=== PATIENT | female | born 1960 | race Hispanic/Latino ===

== ENCOUNTER → 2024-05-22 | Day surgery (SDC) | payer BC ==
[2024-05-21 09:34] LABS: BASOPHILS # (AUTO) 0.1 (0.0-0.1); BASOPHILS % 0.6 % (0.0-1.0); EOSINOPHILS # (AUTO) 0.2 (0.0-0.4); EOSINOPHILS % 2.2 % (0.0-6.0); HEMATOCRIT 45.1 % (34.2-44.1); LYMPHOCYTES % 25.2 % (18.0-39.1); MEAN CORPUSCULAR HEMOGLOBIN 29.5 pg (28-32); MEAN CORPUSCULAR VOLUME 95.1 fL (81-99); MONOCYTES # (AUTO) 0.4 (0.2-0.8); MONOCYTES % 5.6 % (4.4-11.3); NEUTROPHILS # (AUTO) 5.1 (2.1-6.9); PLATELET COUNT 300 x10e3/uL (140-360); RED BLOOD COUNT 4.74 x10e6/uL (3.6-5.1); WHITE BLOOD COUNT 7.79 x10e3/uL (4.8-10.8)
[2024-05-21 09:52] LABS: ALBUMIN 3.6 g/dL (3.5-5.0); ALBUMIN/GLOBULIN RATIO 0.8 (0.8-2.0); ANION GAP 16.3 mmol/L (8-16); BILIRUBIN,TOTAL 0.7 mg/dL (0.2-1.2); CALCIUM 9.4 mg/dL (8.4-10.2); CREATININE, SERUM 0.7 mg/dL (0.57-1.11); POTASSIUM 4.3 mmol/L (3.5-5.1); TOTAL PROTEIN 8.1 g/dL (6.5-8.1)
[~2024-05-22] MED LIST: AZO URINARY TR1 EACH; AZO1 EACH; BACTRIM DS TAB1 EACH PO; BENICAR20 MG PO; CEPHALEXIN500 MG PO; DEXAMETHASONE SOD PHOS INJ 4 MG/ML SDV ONE; FENTANYL CITRATE/PF 100MCG/2 ML INJ ONE; IOPAMIDOL 610MG/1ML 300 MG/ML VIAL IV ONE; LIDOCAINE HCL 2% LOCAL INJ 5 ML SDV VIAL INJ ONE; ONDANSETRON HCL INJ 2MG/ML 2ML 2 MG/ML VIAL ONE; ONDANSETRON ODT4 MG PO; PHENAZOPYRIDINE HCL 100 MG TAB ONE; PROPOFOL IV EMULSION 10 MG/ML 20 ML VIAL ONE; SEVOFLURANE INHAL SOLN 250 ML PEN BTL ONE; VITAMIN C500 M1 PO
[2024-05-22] MEDS: CEFTRIAXONE 1 GM VIAL ONE (10:10)
[2024-05-22] MEDS: LACTATED RINGER'S 1,000 ML ONE (10:10)
[2024-05-22 10:16] LABS: CALCIUM 9.4 mg/dL (8.7-10.3)
[2024-05-22 13:25] VITALS: BP 148/72; PULSE 80; RESP 17; O2SAT 99
== END | disposition home or self-care (01) ==
LOC: OR 09:18
PROVIDERS: ATTEND Urology
DX: N13.6 Pyonephrosis (principal); R31.0 Gross hematuria; N81.10 Cystocele, unspecified; N81.6 Rectocele; N36.41 Hypermobility of urethra; N95.2 Postmenopausal atrophic vaginitis; I10 Essential (primary) hypertension; K21.9 Gastro-esophageal reflux disease without esophagitis; R94.31 Abnormal electrocardiogram [ECG] [EKG]; Z01.810 Encounter for preprocedural cardiovascular examination; Z01.812 Encounter for preprocedural laboratory examination; Z01.818 Encounter for other preprocedural examination; Z79.899 Other long term (current) drug therapy
CPT/HCPCS: 36415; 52332; 74018; 74420; 80053; 83970; 84550; 85025; 87086; 93005; C1758; C1766; C1769; C2617; J0696; J1100; J2003; J2405; J2704; J3010; J7121; Q9967

== ENCOUNTER 2024-06-06 16:17 | Inpatient (IN) | payer BC, OTHER ==
[~2024-06-06] VITALS: Ht 157.5 cm; Wt 66.2 kg
[~2024-06-06 16:17] MED LIST changes: -AZO URINARY TR1 EACH; -AZO1 EACH; -BACTRIM DS TAB1 EACH PO; -CEPHALEXIN500 MG PO; -DEXAMETHASONE SOD PHOS INJ 4 MG/ML SDV ONE; -FENTANYL CITRATE/PF 100MCG/2 ML INJ ONE; -IOPAMIDOL 610MG/1ML 300 MG/ML VIAL IV ONE; -LIDOCAINE HCL 2% LOCAL INJ 5 ML SDV VIAL INJ ONE; -ONDANSETRON HCL INJ 2MG/ML 2ML 2 MG/ML VIAL ONE; -ONDANSETRON ODT4 MG PO; -PHENAZOPYRIDINE HCL 100 MG TAB ONE; -PROPOFOL IV EMULSION 10 MG/ML 20 ML VIAL ONE; -SEVOFLURANE INHAL SOLN 250 ML PEN BTL ONE; -VITAMIN C500 M1 PO
[2024-06-06 16:23] VITALS: TEMP 98.8
[2024-06-06 17:09] LABS: BASOPHILS # (AUTO) 0.1 (0.0-0.1); BASOPHILS % 0.4 % (0.0-1.0); EOSINOPHILS % 0.2 % (0.0-6.0); HEMATOCRIT 39.5 % (34.2-44.1); HEMOGLOBIN 12.6 g/dL (12.0-16.0); LYMPHOCYTES % 15.5 % (18.0-39.1); MEAN CORPUSCULAR HEMOGLOBIN 29.4 pg (28-32); MEAN CORPUSCULAR HGB CONC 31.9 g/dL (31-35); MEAN CORPUSCULAR VOLUME 92.1 fL (81-99); MONOCYTES % 8.2 % (4.4-11.3); NEUTROPHILS # (AUTO) 9.5 (2.1-6.9); NEUTROPHILS % 75.5 % (38.7-80.0); PLATELET COUNT 248 x10e3/uL (140-360); RED BLOOD COUNT 4.29 x10e6/uL (3.6-5.1); RED CELL DISTRIBUTION WIDTH 13.9 % (11.7-14.4)
[2024-06-06 17:11] LABS: CLARITY,URINE HAZY (CLEAR); COLOR,URINE YELLOW (YELLOW); PH,URINE 6 (5 - 7)
[2024-06-06 17:12] LABS: GLUCOSE, URINE NEGATIVE (NEGATIVE); KETONES,URINE TRACE (NEGATIVE); LEUKOCYTE ESTERASE ,URINE SMALL (NEGATIVE); NITRITE,URINE POSITIVE (NEGATIVE); PROTEIN,URINE DIPSTICK 2+ (NEGATIVE)
[2024-06-06 17:13] LABS: BACTERIA,URINE MODERATE /HPF; BILIRUBIN,URINE SMALL (NEGATIVE); EPITHELIAL CELLS,URINE FEW /LPF; URINE UROBILINOGEN 0.2 mg/dL (0.2 - 1); WBC,URINE (MAN) >50 /HPF (0-5)
[2024-06-06 17:14] LABS: AMORPHOUS SEDIMENT,URINE FEW (FEW); MUCUS,URINE FEW (RARE)
[2024-06-06 17:28] LABS: ALBUMIN 3.6 g/dL (3.5-5.0); ALBUMIN/GLOBULIN RATIO 0.9 (0.8-2.0); ANION GAP 15.4 mmol/L (8-16); BILIRUBIN,TOTAL 1.2 mg/dL (0.2-1.2); CALCIUM 9.5 mg/dL (8.4-10.2); CREATININE, SERUM 0.9 mg/dL (0.57-1.11); POTASSIUM 4.4 mmol/L (3.5-5.1); TOTAL PROTEIN 7.8 g/dL (6.5-8.1)
[2024-06-06] MEDS: SODIUM CHLORIDE 0.9% 1000ML 1,000 ML IV ONE (17:28)
[2024-06-06] MEDS: ONDANSETRON HCL INJ 2MG/ML 2ML 2 MG/ML VIAL IV STA (17:28)
[2024-06-06] MEDS: KETOROLAC TROMETHAMINE 30 MG/ML VIAL IV STA (17:29)
[2024-06-06] MEDS ORDERED: Morphine 2mg Syringe 2 MG/ML SYR IV PRN (18:00)
[2024-06-06] MEDS ORDERED: ONDANSETRON HCL INJ 2MG/ML 2ML 2 MG/ML VIAL IV PRN (18:00)
[2024-06-06] MEDS ORDERED: SODIUM CHLORIDE FLUSH 10 ML SYR INJ PRN (18:00)
[2024-06-06 18:46] VITALS: PULSE 91; RESP 16
[2024-06-06 20:00] VITALS: BP 116/70; PULSE 94; RESP 18; TEMP 98; O2SAT 99
[2024-06-06 20:30] VITALS: BP 127/72; PULSE 86; RESP 18; TEMP 98.6; O2SAT 99
[2024-06-07] VITALS: BP 146/77; PULSE 94; RESP 18; TEMP 98.7; O2SAT 97
[2024-06-07] MEDS ORDERED: AZO1 EACH (00:20)
[2024-06-07] MEDS ORDERED: AZO URINARY TR1 EACH (00:20)
[2024-06-07] MEDS ORDERED: CEPHALEXIN500 MG PO (00:20)
[2024-06-07 04:00] VITALS: BP 138/72; PULSE 89; RESP 18; TEMP 98.2; O2SAT 99
[2024-06-07 06:06] LABS: BASOPHILS % 0.2 % (0.0-1.0); EOSINOPHILS % 0.3 % (0.0-6.0); HEMATOCRIT 37.6 % (34.2-44.1); HEMOGLOBIN 11.9 g/dL (12.0-16.0); LYMPHOCYTES # (AUTO) 1.1 (1.0-3.2); LYMPHOCYTES % 12.4 % (18.0-39.1); MEAN CORPUSCULAR HEMOGLOBIN 29.3 pg (28-32); MEAN CORPUSCULAR HGB CONC 31.6 g/dL (31-35); MEAN CORPUSCULAR VOLUME 92.6 fL (81-99); MONOCYTES # (AUTO) 0.7 (0.2-0.8); MONOCYTES % 7.2 % (4.4-11.3); NEUTROPHILS # (AUTO) 7.2 (2.1-6.9); NEUTROPHILS % 79.7 % (38.7-80.0); PLATELET COUNT 197 x10e3/uL (140-360); RED BLOOD COUNT 4.06 x10e6/uL (3.6-5.1); RED CELL DISTRIBUTION WIDTH 13.8 % (11.7-14.4); WHITE BLOOD COUNT 8.98 x10e3/uL (4.8-10.8)
[2024-06-07 06:31] LABS: ALBUMIN 3.1 g/dL (3.5-5.0); ALBUMIN/GLOBULIN RATIO 0.8 (0.8-2.0); BILIRUBIN,TOTAL 0.8 mg/dL (0.2-1.2); CALCIUM 8.8 mg/dL (8.4-10.2); CREATININE, SERUM 0.75 mg/dL (0.57-1.11)
[2024-06-07] MEDS ORDERED: VANCOMYCIN 1.5 GM/300 ML (PEG) 300 ML IV SCH ×2 (07:30→11:00)
[2024-06-07 08:00] VITALS: BP 138/72; PULSE 89; RESP 18; TEMP 98.2; O2SAT 99
[2024-06-07 12:28] VITALS: BP 99/52; PULSE 101; RESP 17; TEMP 97.2; O2SAT 97
[2024-06-07 16:00] VITALS: BP 107/63; PULSE 87; RESP 18; TEMP 99.3; O2SAT 99
[2024-06-07 20:00] VITALS: BP 107/59; PULSE 86; RESP 18; TEMP 99.2; O2SAT 99
[2024-06-07] MEDS: CEFEPIME 2 GM in SODIUM CHLORIDE 0.9% 100 ML IV SCH (21:30)
[2024-06-07] MEDS: DIPHENHYDRAMINE HCL INJ 50 MG/ML VIAL IV ONE (22:12)
[2024-06-07] MEDS: METHYLPREDNISOLONE SOD SUCC 125 MG/2ML VIAL IV ONE (22:13)
[2024-06-08] VITALS (8 sets, daily range): BP systolic 93–119; BP diastolic 57–73; PULSE 74–86; RESP 17–19; TEMP 97.4–98.5; O2SAT 95–100
[2024-06-08] MEDS ORDERED: DIPHENHYDRAMINE HCL INJ 50 MG/ML VIAL IV PRN (04:00)
[2024-06-08] MEDS: MEROPENEM 1 GM in SODIUM CHLORIDE 0.9% 100 ML IV SCH (14:34)
[2024-06-09 04:15] VITALS: BP 100/59; PULSE 66; RESP 18; TEMP 97.2; O2SAT 98
[2024-06-09 08:00] VITALS: BP 118/70; PULSE 73; RESP 18; TEMP 97.8; O2SAT 100
[2024-06-09 08:39] VITALS: BP 118/70; PULSE 73; RESP 18; TEMP 97.8; O2SAT 100
[2024-06-09 11:46] VITALS: BP 107/50; PULSE 81; RESP 18; TEMP 97.6; O2SAT 97
[2024-06-09] MEDS: ASCORBIC ACID 500 MG TAB PO SCH (14:15)
[2024-06-09 16:45] VITALS: BP 93/73; PULSE 70; RESP 18; TEMP 97.9; O2SAT 100
[2024-06-09 20:00] VITALS: BP 125/68; PULSE 72; RESP 17; TEMP 97.9; O2SAT 99
[2024-06-10] VITALS: BP 113/66; PULSE 76; RESP 16; TEMP 97.7; O2SAT 100
[2024-06-10 04:00] VITALS: BP 101/60; PULSE 70; RESP 16; TEMP 97.6; O2SAT 100
[2024-06-10 05:46] LABS: BASOPHILS % 0.4 % (0.0-1.0); EOSINOPHILS # (AUTO) 0.2 (0.0-0.4); EOSINOPHILS % 3.5 % (0.0-6.0); HEMATOCRIT 35.6 % (34.2-44.1); HEMOGLOBIN 11.3 g/dL (12.0-16.0); LYMPHOCYTES # (AUTO) 2.8 (1.0-3.2); LYMPHOCYTES % 41.4 % (18.0-39.1); MEAN CORPUSCULAR HGB CONC 31.7 g/dL (31-35); MEAN CORPUSCULAR VOLUME 91.5 fL (81-99); MONOCYTES # (AUTO) 0.5 (0.2-0.8); MONOCYTES % 6.6 % (4.4-11.3); NEUTROPHILS # (AUTO) 3.3 (2.1-6.9); NEUTROPHILS % 47.7 % (38.7-80.0); PLATELET COUNT 258 x10e3/uL (140-360); RED BLOOD COUNT 3.89 x10e6/uL (3.6-5.1); RED CELL DISTRIBUTION WIDTH 13.7 % (11.7-14.4); WHITE BLOOD COUNT 6.83 x10e3/uL (4.8-10.8)
[2024-06-10 06:09] LABS: ANION GAP 12.1 mmol/L (8-16); CREATININE, SERUM 0.64 mg/dL (0.57-1.11); PHOSPHORUS 3.8 MG/DL (2.3-4.7); POTASSIUM 4.1 mmol/L (3.5-5.1)
[2024-06-10 07:55] VITALS: BP 116/54; PULSE 80; RESP 19; TEMP 97.9; O2SAT 99
[2024-06-10 11:34] VITALS: BP 102/65; PULSE 65; RESP 17; TEMP 97.6; O2SAT 98
[2024-06-10 15:20] VITALS: BP 110/54; PULSE 74; RESP 18; TEMP 97.2; O2SAT 98
[2024-06-10] MEDS ORDERED: VITAMIN C500 M1 PO (17:26)
[2024-06-10] MEDS ORDERED: ONDANSETRON ODT4 MG PO (17:26)
[2024-06-10] MEDS ORDERED: BACTRIM DS TAB1 EACH PO (17:26)
== END 2024-06-10 18:35 | disposition home or self-care (01) | DRG 698 ==
LOC: ER 16:30 → ERHOLD 17:52 → MED/SURG2 19:50 → OBSVTOIN 06-09 07:52
PROVIDERS: ADMIT Internal Medicine; ATTEND Internal Medicine
PROC: 3E0333Z Introduction of Anti-inflammatory into Peripheral Vein, Percutaneous Approach (ICD-10-PCS; principal; 2024-06-06)
DX: T83.592A Infection and inflammatory reaction due to indwelling ureteral stent, initial encounter (principal); A41.51 Sepsis due to Escherichia coli [E. coli]; Z16.12 Extended spectrum beta lactamase (ESBL) resistance; Z16.24 Resistance to multiple antibiotics; N12 Tubulo-interstitial nephritis, not specified as acute or chronic; N20.0 Calculus of kidney; D64.9 Anemia, unspecified; R31.9 Hematuria, unspecified; I10 Essential (primary) hypertension; Z96.0 Presence of urogenital implants; Z90.49 Acquired absence of other specified parts of digestive tract; Y83.1 Surgical operation with implant of artificial internal device as the cause of abnormal reaction of the patient, or of later complication, without mention of misadventure at the time of the procedure
CPT/HCPCS: 36415; 74176; 80048; 80053; 81001; 83605; 83735; 84100; 85025; 87040; 87071; 87086; 87186; 87205; 99283; G0378; J0692; J0696; J1200; J2185; J2543; J2919; J7040; J7050

== ENCOUNTER → 2024-06-24 | Day surgery (SDC) | payer OTHER ==
[2024-06-22 09:50] LABS: BASOPHILS % 0.5 % (0.0-1.0); EOSINOPHILS # (AUTO) 0.5 (0.0-0.4); EOSINOPHILS % 5.9 % (0.0-6.0); HEMOGLOBIN 12.8 g/dL (12.0-16.0); LYMPHOCYTES # (AUTO) 1.7 (1.0-3.2); MEAN CORPUSCULAR HEMOGLOBIN 29.1 pg (28-32); MEAN CORPUSCULAR HGB CONC 31.2 g/dL (31-35); MEAN CORPUSCULAR VOLUME 93.2 fL (81-99); MONOCYTES # (AUTO) 0.5 (0.2-0.8); MONOCYTES % 6.3 % (4.4-11.3); NEUTROPHILS # (AUTO) 5.7 (2.1-6.9); NEUTROPHILS % 67.1 % (38.7-80.0); PLATELET COUNT 242 x10e3/uL (140-360); RED CELL DISTRIBUTION WIDTH 13.8 % (11.7-14.4); WHITE BLOOD COUNT 8.47 x10e3/uL (4.8-10.8)
[2024-06-22 12:11] LABS: ANION GAP 18.1 mmol/L (8-16); CALCIUM 9.7 mg/dL (8.4-10.2); CREATININE, SERUM 0.71 mg/dL (0.57-1.11); POTASSIUM 4.1 mmol/L (3.5-5.1)
[~2024-06-24] MED LIST changes: +ACETAMINOPHEN 1000 MG/100 ML 100 ML IV ONE; +ACETAMINOPHEN/CODEINE 300MG - 30MG TAB ONE; +AZO URINARY TR1 EACH; +AZO1 EACH; +BACTRIM DS TAB1 EACH PO; +CEPHALEXIN500 MG PO; +DEXAMETHASONE SOD PHOS INJ 4 MG/ML SDV ONE; +FAMOTIDINE 20 MG/2 ML VIAL IV ONE; +FENTANYL CITRATE/PF 100MCG/2 ML INJ ONE; +LIDOCAINE HCL 2% LOCAL INJ 5 ML SDV VIAL INJ ONE; +ONDANSETRON HCL INJ 2MG/ML 2ML 2 MG/ML VIAL ONE; +ONDANSETRON ODT4 MG PO; +PHENAZOPYRIDINE HCL 100 MG TAB ONE; +PROPOFOL IV EMULSION 10 MG/ML 20 ML VIAL ONE; +VITAMIN C500 M1 PO
[2024-06-24] MEDS: ACETAMINOPHEN/CODEINE 300MG - 30MG TAB PO ONE (11:58)
[2024-06-24] MEDS: PHENAZOPYRIDINE HCL 100 MG TAB PO ONE ×2 (12:12)
[2024-06-24] MEDS: CEFTRIAXONE 1 GM VIAL ONE (12:27)
[2024-06-24] MEDS: GENTAMICIN 80MG/NS 100 ML 200 ML IV ONE (12:27)
[2024-06-24 12:45] VITALS: BP 126/77; PULSE 78; RESP 16; O2SAT 100
== END | disposition home or self-care (01) ==
LOC: OR 08:20
PROVIDERS: ATTEND Urology
DX: Z46.6 Encounter for fitting and adjustment of urinary device (principal); N20.0 Calculus of kidney; N28.89 Other specified disorders of kidney and ureter; N81.10 Cystocele, unspecified; N81.6 Rectocele; N36.41 Hypermobility of urethra; N95.2 Postmenopausal atrophic vaginitis; N39.0 Urinary tract infection, site not specified; N13.30 Unspecified hydronephrosis; N81.89 Other female genital prolapse; R39.14 Feeling of incomplete bladder emptying; N32.81 Overactive bladder; I10 Essential (primary) hypertension; M19.90 Unspecified osteoarthritis, unspecified site; M06.9 Rheumatoid arthritis, unspecified; K21.9 Gastro-esophageal reflux disease without esophagitis; Z88.1 Allergy status to other antibiotic agents; Z01.812 Encounter for preprocedural laboratory examination; Z01.818 Encounter for other preprocedural examination; Z79.899 Other long term (current) drug therapy
CPT/HCPCS: 36415; 52351; 74018; 74420; 80048; 84550; 85025; 87086; 87186; C1769; J0131; J0696; J1100; J1580; J2003; J2405; J2704; J3010

== ENCOUNTER → 2025-04-14 | Outpatient (REF) | payer MEDICARE ==
[~2025-04-14] MED LIST changes: -ACETAMINOPHEN 1000 MG/100 ML 100 ML IV ONE; -ACETAMINOPHEN/CODEINE 300MG - 30MG TAB ONE; -DEXAMETHASONE SOD PHOS INJ 4 MG/ML SDV ONE; -FAMOTIDINE 20 MG/2 ML VIAL IV ONE; -FENTANYL CITRATE/PF 100MCG/2 ML INJ ONE; -LIDOCAINE HCL 2% LOCAL INJ 5 ML SDV VIAL INJ ONE; -ONDANSETRON HCL INJ 2MG/ML 2ML 2 MG/ML VIAL ONE; -PHENAZOPYRIDINE HCL 100 MG TAB ONE; -PROPOFOL IV EMULSION 10 MG/ML 20 ML VIAL ONE
== END ==
LOC: RAD 09:46
PROVIDERS: ATTEND Urology
DX: Z87.442 Personal history of urinary calculi (principal)
CPT/HCPCS: 74018